=== PATIENT | male | born 1975 | race Caucasian/White ===

== ENCOUNTER 2017-08-20 09:48 | Emergency (ER) ==
[2017-08-20 09:53] VITALS: TEMP 97.3; BMI 37.7
[2017-08-20 10:21] VITALS: BP 160/98
[2017-08-20] MEDS ORDERED: XOPENEX 1.25 MG NEB STA (10:30)
[2017-08-20] MEDS ORDERED: DECADRON 4 MG/ML SDV IM STA (10:30)
[2017-08-20] MEDS ORDERED: LIDOCAINE HCL 1% SDV SUBCUT STA (10:30)
[2017-08-20] MEDS ORDERED: DUONEB NEB STA (10:30)
[2017-08-20] MEDS ORDERED: ROCEPHIN IM STA (10:30)
--- NOTE | 2017-08-20 11:17 | ED.PDOC ---
General ED Provider: Dr. ABDI TRACY-ER Chief Complaint: Respiratory Complaint Stated Complaint: wendy been coughing up green stuff Time Seen by Physician: 10:00 Mode of Arrival: Walk-In Information Source: Patient Exam Limitations: No limitations Primary Care Provider: ZACARIAS FLOYD Nursing and Triage Documentation Reviewed and Agree: Yes Reviewed sepsis parameters & appropriate labs ordered?: Yes System Inflammatory Response Syndrome: Not Applicable Sepsis Protocol: For patient's 13 years and over: Temp is 96.8 and below OR 101 and greater Pulse >90 BPM Resp >20/minute Acutely Altered Mental Status Are patient's symptoms suggestive of a new infection, such as: -Pneumonia -Skin, Soft Tissue -Endocarditis -UTI -Bone, Joint Infection -Implantable Device -Acute Abdominal Infection -Wound Infection -Meningitis -Blood Stream Catheter Infection -Unknown Respiratory Complaint Exam - Respiratory Complaint/Exam Onset/Duration: 2 weeks Symptoms Are: Still present Timing: Intermittent Initial Severity: Mild Current Severity: Mild Location: Chest Character: Reports: Productive cough Aggravating: Reports: URI Alleviating: Reports: None Associated Signs and Symptoms: Reports: Wheezing, URI, Nasal congestion. Denies : Rapid breathing, Dyspnea, Fever, Chills, Chest pain, Pleuritic chest pain, Hemoptysis, Dizziness, Calf pain, Calf swelling, Edema, Hoarseness, Sinus discomfort, Vomiting, Sore throat, Weight loss, Decreased oral intake, Increased thirst, Increased urination Related History: Reports: Similar episode History of Healthcare-Acquired Pneumonia: No Tuberculosis Risk Factors: Reports: None Status Asthmaticus Risk Factors: Reports: None Home Oxygen Use: No Recent Stress Test: No Recent Echo/LV Function: No Current Antibiotic Use: No Current Asthma Medication Use: No Respiratory Distress: None Inadequate Respiratory Effort: No Dysphagia Present: No Stridor Present: No JVD Present: No Accessory Muscle Use: No Retractions: Not Present Diminished Breath Sounds: No Prolonged Respiration: Expiratory phase Sinus Tenderness: None Grunting Respirations: No Kussmaul Respirations: No Differential Diagnoses: Pneumonia, Bronchitis Review of Systems - Review Of Systems Constitutional: Reports: No symptoms Eyes: Reports: No symptoms Ears, Nose, Mouth, Throat: Reports: No symptoms Respiratory: Reports: Cough, Wheezing Cardiac: Reports: No symptoms GI: Reports: No symptoms : Reports: No symptoms Musculoskeletal: Reports: No symptoms Skin: Reports: No symptoms Neurological: Reports: No symptoms Endocrine: Reports: No symptoms Hematologic/Lymphatic: Reports: No symptoms All Other Systems: Reviewed and Negative Past Medical History - Past Medical History Previously Healthy: Yes Endocrine: Reports: None Cardiovascular: Reports: Hypertension Respiratory: Reports: None Hematological: Reports: None Gastrointestinal: Reports: None Genitourinary: Reports: None Neuro/Psych: Reports: None Musculoskeletal: Reports: None Cancer: Reports: None - Surgical History General Surgical History: Reports: Unknown - Family History Family History: Reports: Unknown - Social History Smoking Status: Former smoker Hx Substance Use: No Alcohol Screening: Occasionally Lives: With family Physical Exam - Physical Exam Appearance: Well-appearing, No pain distress, Well-nourished Eyes: CHIDI, EOMI, Conjunctiva clear ENT: Ears normal Neck: Supple Respiratory: Airway patent, Respirations nonlabored, Rhonchi, Wheezes Cardiovascular: RRR, Pulses normal, No rub, No murmur GI/: Soft, Nontender, No masses, Bowel sounds normal, No Organomegaly Musculoskeletal: Normal strength, ROM intact, No edema, No calf tenderness Skin: Warm, Dry, Normal color Neurological: Sensation intact, Motor intact, Reflexes intact, Cranial nerves intact, Alert, Oriented Psychiatric: Affect appropriate, Mood appropriate Interpretation - Radiology Interpretation Radiology Interpretation By: Radiologist Radiology Results: Negative Exam Interpreted: CXR Re-Evaluation - Re-Evaluation Time of Re-Evaluation: 11:44 Status: Improved Vital Signs Stable: Yes Pain Level: 0 Appearance: NAD Lungs: Clear Skin: Warm and Dry Neuro: Alert and Oriented X3 CV: RRR Critical Care Note - Critical Care Note Total Time (mins): 0 Course - Course Hematology/Chemistry: 08/20/17 10:35 08/20/17 10:35 Orders, Labs, Meds: Lab Review 08/20/17 08/20/17 08/20/17 09:58 10:35 10:35 WBC 11.16 H RBC 5.32 Hgb 16.1 Hct 47.0 MCV 88.3 MCH 30.3 MCHC 34.3 RDW Coeff of Teresa 12.1 Plt Count 236 Immature Gran % (Auto) 0.4 Neut % (Auto) 62.5 Lymph % (Auto) 27.9 [place] % (Auto) 7.4 Eos % (Auto) 1.4 Baso % (Auto) 0.4 Immature Gran # (Auto) 0.0 Neut # 7.0 H Lymph # 3.1 [place] # 0.8 Eos # 0.2 Baso # 0.0 D-Dimer (Manual) Sodium 138 Potassium 3.5 Chloride 101 Carbon Dioxide 29 Anion Gap 11.5 BUN 11 Creatinine 0.80 Estimated GFR (MDRD) 107.00 BUN/Creatinine Ratio 13.75 Glucose 96 Calcium 9.0 Total Bilirubin 0.7 AST 24 ALT 35 Alkaline Phosphatase 65 Total Protein 7.7 Albumin 3.7 Globulin 4.0 Albumin/Globulin Ratio 0.93 Influenza A (Rapid) Negative by naat Influenza B (Rapid) Negative by naat 08/20/17 10:35 WBC RBC Hgb Hct MCV MCH MCHC RDW Coeff of Teresa Plt Count Immature Gran % (Auto) Neut % (Auto) Lymph % (Auto) [place] % (Auto) Eos % (Auto) Baso % (Auto) Immature Gran # (Auto) Neut # Lymph # [place] # Eos # Baso # D-Dimer (Manual) 351.22 Sodium Potassium Chloride Carbon Dioxide Anion Gap BUN Creatinine Estimated GFR (MDRD) BUN/Creatinine Ratio Glucose Calcium Total Bilirubin AST ALT Alkaline Phosphatase Total Protein Albumin Globulin Albumin/Globulin Ratio Influenza A (Rapid) Influenza B (Rapid) Orders Category Date Time Status NEBULIZER TREATMENT Stat CARDIO 08/20/17 10:30 Ordered BLOOD CULTURE (ED ONLY) Stat LAB 08/20/17 10:35 Received CBC W/ AUTO DIFF Stat LAB 08/20/17 10:35 Completed COMPREHENSIVE METABOLIC PANEL Stat LAB 08/20/17 10:35 Completed D-DIMER Stat LAB 08/20/17 10:35 Completed MOLECULAR GROUP A STREP Stat LAB 08/20/17 09:58 Results RAPID FLU A/B Stat LAB 08/20/17 09:58 Completed STREP SCREEN Stat LAB 08/20/17 09:58 Results Ceftriaxone Sodium [Rocephin] MEDS 08/20/17 10:30 Discontinued 1 gm IM ONCE STA Dexamethasone 4 mg/ml Inj [Decadron 4 mg/ml Sdv] MEDS 08/20/17 10:30 Discontinued 8 mg IM ONCE STA Ipratropium/Albuterol Neb [Duoneb] MEDS 08/20/17 10:30 Discontinued 1 vial NEB ONCE STA Levalbuterol HCl [Xopenex 1.25 mg] MEDS 08/20/17 10:30 Discontinued 1 vial NEB ONCE STA Lidocaine HCl/Pf [Lidocaine HCl 1% Sdv] MEDS 08/20/17 10:30 Discontinued 5 ml SUBCUT ONCE STA CXR [CHEST, 2 VIEWS PA & LAT] Stat RADS 08/20/17 10:30 Ordered Medications Discontinued Medications Generic Name Dose Route Start Last Admin Trade Name Greer PRN Reason Stop Dose Admin Albuterol/Ipratropium 1 vial 08/20/17 10:30 08/20/17 11:23 Duoneb NEB 08/20/17 10:31 1 vial ONCE STA Administration Ceftriaxone Sodium 1 gm 08/20/17 10:30 08/20/17 10:49 Rocephin IM 08/20/17 10:31 1 gm ONCE STA Administration Dexamethasone Sodium Phosphate 8 mg 08/20/17 10:30 08/20/17 10:48 Decadron 4 Mg/Ml Sdv IM 08/20/17 10:31 8 mg ONCE STA Administration Levalbuterol HCl 1 vial 08/20/17 10:30 08/20/17 10:56 Xopenex 1.25 Mg NEB 08/20/17 10:31 1 vial ONCE STA Administration Lidocaine HCl 5 ml 08/20/17 10:30 08/20/17 10:50 Lidocaine Hcl 1% Sdv SUBCUT 08/20/17 10:31 2.1 ml ONCE STA Administration Vital Signs: Temp Pulse Resp BP Pulse Ox 08/20/17 10:20 160/98 H 08/20/17 09:48 97.3 F L 100 H 16 195/121 H 95 Departure - Departure Time of Disposition: 11:44 Disposition: HOME SELF-CARE Discharge Problem: Acute bronchitis Qualifiers: Bronchitis organism: unspecified organism Qualified Code(s): J20.9 - Acute bronchitis, unspecified Instructions: Acute Bronchitis (ED) Condition: Good Pt referred to PMD for follow-up: Yes Additional Instructions: biaxin 500mg bid x 10 days--medrol dose pack--proventil inhaler 2 puffs qid -- tessaon perles 200mg tid prn cough #3--avoid cig smoke--f/u with dr alexa fair Allergies/Adverse Reactions: Allergies No Known Allergies Allergy (Verified 08/20/17 09:53) Home Medications: Ambulatory Orders Bisoprolol Fumarate [Zebeta] 5 mg PO DAILY 08/20/17 Losartan Potassium [Cozaar] 25 mg PO BID 08/20/17 Disposition Discussed With: Patient
--- NOTE | 2017-08-20 12:15 | DI ---
EXAM: CHEST FRONTAL AND LATERAL VIEWS HISTORY: Cough. COMPARISON: None FINDINGS: Heart size and mediastinal contour within normal limits. No acute infiltrates. Normal vascularity with no pleural fluid or pneumothorax. The bony thorax has no acute finding. IMPRESSION: No acute process.
== END 2017-08-20 12:20 | disposition home or self-care (01) ==
LOC: ED 09:48
DX: J20.9 Acute bronchitis, unspecified (principal); I10 Essential (primary) hypertension
CPT/HCPCS: 36415; 80053; 85025; 85379; 87040; 87502; 87651; 87880; 94640; 96372; 99283

== ENCOUNTER 2017-08-27 08:22 | Emergency (ER) ==
[2017-08-27 08:30] VITALS: TEMP 99.6; BMI 37.8
[2017-08-27] MEDS: COZAAR PO STA (09:00)
--- NOTE | 2017-08-27 09:25 | DI ---
EXAM: Chest PA and lateral HISTORY: Shortness of breath. COMPARRISON: 08/20/2017 FINDINGS: The heart is normal in size. Pulmonary vascularity is within normal limits. No focal airspa ce opacity or pleural effusion is seen. Osseous structures are unremarkable. IMPRESSION: No acute cardiopulmonary findings.
[2017-08-27 09:57] VITALS: BP 164/124
--- NOTE | 2017-08-27 09:57 | ED.PDOC ---
General ED Provider: Dr. CATIA SCHMIDT Chief Complaint: Shortness of Air Stated Complaint: short of air flu like symptoms Time Seen by Physician: 08:22 (seen with entire staff on last day of z pack) Mode of Arrival: Walk-In Information Source: Patient Exam Limitations: No limitations Primary Care Provider: ZACARIAS FLOYD Nursing and Triage Documentation Reviewed and Agree: Yes Reviewed sepsis parameters & appropriate labs ordered?: Yes System Inflammatory Response Syndrome: Not Applicable Sepsis Protocol: For patient's 13 years and over: Temp is 96.8 and below OR 101 and greater Pulse >90 BPM Resp >20/minute Acutely Altered Mental Status Are patient's symptoms suggestive of a new infection, such as: -Pneumonia -Skin, Soft Tissue -Endocarditis -UTI -Bone, Joint Infection -Implantable Device -Acute Abdominal Infection -Wound Infection -Meningitis -Blood Stream Catheter Infection -Unknown Respiratory Complaint Exam - Respiratory Complaint/Exam Onset/Duration: 1 week Symptoms Are: Still present Timing: Intermittent Initial Severity: Mild Current Severity: Mild Location: Nose, Throat, Chest Character: Reports: Non-productive cough Aggravating: Reports: URI Alleviating: Reports: Spontaneous resolution Associated Signs and Symptoms: Reports: URI. Denies: Rapid breathing, Dyspnea, Fever, Chills, Chest pain, Pleuritic chest pain, Wheezing, Hemoptysis, Dizziness , Calf pain, Calf swelling, Edema, Nasal congestion, Hoarseness, Sinus discomfort, Vomiting, Sore throat, Weight loss, Decreased oral intake, Increased thirst, Increased appetite, Increased urination History of Healthcare-Acquired Pneumonia: No Related Surgical History: Reports: None Pulmonary Embolism Risk Factors: None Cardiac Risk Factors: Reports: Hypertension Tuberculosis Risk Factors: Reports: None Status Asthmaticus Risk Factors: Reports: None Home Oxygen Use: No Recent Stress Test: No Recent Echo/LV Function: No Current Antibiotic Use: No Current Asthma Medication Use: No Respiratory Distress: None Inadequate Respiratory Effort: No Dysphagia Present: No Stridor Present: No JVD Present: No Accessory Muscle Use: No Retractions: Not Present Diminished Breath Sounds: No Sinus Tenderness: None Grunting Respirations: No Kussmaul Respirations: No Differential Diagnoses: Pneumonia, Bronchitis Review of Systems - Review Of Systems Constitutional: Reports: Malaise Eyes: Reports: No symptoms Ears, Nose, Mouth, Throat: Reports: No symptoms Respiratory: Reports: Cough, Short of air Cardiac: Reports: No symptoms GI: Reports: No symptoms : Reports: No symptoms Musculoskeletal: Reports: No symptoms Skin: Reports: No symptoms Neurological: Reports: No symptoms Endocrine: Reports: No symptoms Hematologic/Lymphatic: Reports: No symptoms All Other Systems: Reviewed and Negative Past Medical History - Past Medical History Previously Healthy: Yes Endocrine: Reports: None Cardiovascular: Reports: Hypertension Respiratory: Reports: None Hematological: Reports: None Gastrointestinal: Reports: None Genitourinary: Reports: None Neuro/Psych: Reports: None Musculoskeletal: Reports: None Cancer: Reports: None - Surgical History General Surgical History: Reports: Unknown - Family History Family History: Reports: Unknown - Social History Smoking Status: Former smoker Hx Substance Use: No Alcohol Screening: Occasionally Physical Exam - Physical Exam Appearance: Well-appearing, No pain distress, Well-nourished Eyes: CHIDI, EOMI, Conjunctiva clear ENT: Ears normal, Nose normal, Oropharynx normal Respiratory: Airway patent, Breath sounds clear, Breath sounds equal, Respirations nonlabored Cardiovascular: RRR, Pulses normal, No rub, No murmur GI/: Soft, Nontender, No masses, Bowel sounds normal, No Organomegaly Musculoskeletal: Normal strength, ROM intact, No edema, No calf tenderness Skin: Warm, Dry, Normal color Neurological: Sensation intact, Motor intact, Reflexes intact, Cranial nerves intact, Alert, Oriented Psychiatric: Affect appropriate, Mood appropriate Interpretation - Radiology Interpretation Radiology Interpretation By: Radiologist Radiology Results: Negative Exam Interpreted: CXR Critical Care Note - Critical Care Note Total Time (mins): 0 Course - Course Orders, Labs, Meds: Lab Review 08/27/17 09:00 Puncture Site Rrad O2 Saturation 97.0 ABG pH 7.436 ABG pCO2 39.0 ABG pO2 86.0 ABG HCO3 26.2 H ABG Total CO2 27 ABG Base Excess 2 Edgar Test + FiO2 % 21.0 Orders Category Date Time Status ABG DRAW REQUEST Stat CARDIO 08/27/17 08:46 Ordered ABG Stat LAB 08/27/17 08:46 Ordered Losartan Potassium [Cozaar] MEDS 08/27/17 08:47 Stat 25 mg PO ONCE STA CHEST, 2 VIEWS PA & LAT Stat RADS 08/27/17 08:47 Ordered Medications Discontinued Medications Generic Name Dose Route Start Last Admin Trade Name Freq PRN Reason Stop Dose Admin Losartan Potassium 25 mg 08/27/17 08:47 08/27/17 09:00 Cozaar PO 08/27/17 08:48 25 mg ONCE STA Administration Vital Signs: Temp Pulse Resp BP Pulse Ox 08/27/17 08:52 104 H 181/125 H 95 08/27/17 08:22 99.6 F 103 H 20 191/135 H 96 Departure - Departure Time of Disposition: 09:57 Disposition: HOME SELF-CARE Discharge Problem: Viral syndrome Instructions: Viral Syndrome (ED) Condition: Good Pt referred to PMD for follow-up: Yes Additional Instructions: Please call your Family Physician as soon as possible to schedule a follow-up appointment. Prescriptions: Hydrocodone/Chlorphen Polis [Tussionex] 5 ml PO Q12HR 5 Days disp.syrin Allergies/Adverse Reactions: Allergies No Known Allergies Allergy (Verified 08/27/17 08:32) Home Medications: Ambulatory Orders Bisoprolol Fumarate [Zebeta] 5 mg PO DAILY 08/20/17 Losartan Potassium [Cozaar] 25 mg PO BID 08/20/17 Albuterol Sulfate [Proair Hfa] 2 puff IH Q6H 08/27/17 Azithromycin [Zithromax] 500 mg PO DAILY 08/27/17 Hydrocodone/Chlorphen Polis [Tussionex] 5 ml PO Q12HR 5 Days disp.syrin Disposition Discussed With: Patient
== END 2017-08-27 10:06 | disposition home or self-care (01) ==
LOC: ED 08:22
DX: B34.9 Viral infection, unspecified (principal); I10 Essential (primary) hypertension
CPT/HCPCS: 82803; 99283

== ENCOUNTER 2019-01-20 12:32 | Emergency (ER) ==
[2019-01-20 12:37] VITALS: TEMP 98.9; BMI 38.3
[2019-01-20] MEDS ORDERED: NORVASC PO STA (13:49)
--- NOTE | 2019-01-20 14:06 | DI ---
Exam: Two views of the chest. Comparison: 07/23/2018. Reason for exam: Cough. FINDINGS: No pneumothorax, pleural effusion, or focal consolidation. The cardiac silhouette is unch anged. The imaged osseous structures appear unremarkable. Impression: No acute cardiopulmonary process
--- NOTE | 2019-01-20 15:06 | ED.PDOC ---
General ED Provider: Dr. CATIA SCHMIDT Chief Complaint: Hypertension Stated Complaint: hypertension Time Seen by Physician: 12:33 (seen with RN AT ALL TIMES ) Mode of Arrival: Walk-In Information Source: Patient Exam Limitations: No limitations Primary Care Provider: ZACARIAS FLOYD Nursing and Triage Documentation Reviewed and Agree: Yes Does patient meet sepsis criteria?: No System Inflammatory Response Syndrome: Not Applicable Sepsis Protocol: For patient's 13 years and over: Temp is 96.8 and below OR 101 and greater Pulse >90 BPM Resp >20/minute Acutely Altered Mental Status Are patient's symptoms suggestive of a new infection, such as: -Pneumonia -Skin, Soft Tissue -Endocarditis -UTI -Bone, Joint Infection -Implantable Device -Acute Abdominal Infection -Wound Infection -Meningitis -Blood Stream Catheter Infection -Unknown Cardiovascular Complaint Exam - Hypertension Complaint/Exam Onset/Duration: 1 DAY Symptoms Are: Still present Timing: Intermittent Reported B/P Prior to Arrival: 160/100 Aggravating: Reports: None Alleviating: Reports: None Associated Signs and Symptoms: Denies: Chest pain, Vision changes, Anxiety, Recent stress, Headache, Numbness, Tingling, Weakness, Dizziness, Short of air, Swelling Related Surgical History: Reports: None Cardiac Risk Factors: Reports: Hypertension Recent Change in Medications: No A/V [place]: No Papilledema Present: No JVD Present: No Carotid Bruit Present: No Femoral Pulses Bounding: No Differential Diagnoses: Hypertensive Urgency Quality Indicator For Non-Traumatic Chest Pain/Syncope: EKG Performed Review of Systems - Review Of Systems Constitutional: Reports: No symptoms Eyes: Reports: No symptoms Ears, Nose, Mouth, Throat: Reports: No symptoms Respiratory: Reports: No symptoms Cardiac: Reports: No symptoms GI: Reports: No symptoms : Reports: No symptoms Musculoskeletal: Reports: No symptoms Skin: Reports: No symptoms Neurological: Reports: No symptoms Endocrine: Reports: No symptoms Hematologic/Lymphatic: Reports: No symptoms All Other Systems: Reviewed and Negative Past Medical History - Past Medical History Previously Healthy: Yes Endocrine: Reports: None Cardiovascular: Reports: Hypertension Respiratory: Reports: None Hematological: Reports: None Gastrointestinal: Reports: None Genitourinary: Reports: None Neuro/Psych: Reports: None Musculoskeletal: Reports: None Cancer: Reports: None - Surgical History General Surgical History: Reports: Unknown - Family History Family History: Reports: Unknown - Social History Smoking Status: Current every day smoker, Light tobacco smoker Hx Substance Use: No Alcohol Screening: Occasionally - Immunizations Tetanus Shot up to Date: No Physical Exam - Physical Exam Appearance: Well-appearing, No pain distress, Well-nourished Eyes: CHIDI, EOMI, Conjunctiva clear ENT: Ears normal, Nose normal, Oropharynx normal Respiratory: Airway patent, Breath sounds clear, Breath sounds equal, Respirations nonlabored Cardiovascular: RRR, Pulses normal, No rub, No murmur GI/: Soft, Nontender, No masses, Bowel sounds normal, No Organomegaly Musculoskeletal: Normal strength, ROM intact, No edema, No calf tenderness Skin: Warm, Dry, Normal color Neurological: Sensation intact, Motor intact, Reflexes intact, Cranial nerves intact, Alert, Oriented Psychiatric: Affect appropriate, Mood appropriate Interpretation - Radiology Interpretation Radiology Interpretation By: Radiologist Radiology Results: No acute changes - Computer Engineering Technologist Rate: Normal Rhythm: Sinus Ectopy: None - EKG Interpretation Rate: Normal Rhythm: Sinus Ectopy: None [place]: [place] ([facility]) Physician Notification - Case Discussed Physician Notified: PMD Time of Notification: 15:05 (ALL LABS DISCUSSED . PMD STATED TO PLACE PT NORVASC 5 MG BID AND ASK TO SEE P.M.D IN AM) Critical Care Note - Critical Care Note Total Time (mins): 0 Course - Course Hematology/Chemistry: 01/20/19 14:00 01/20/19 14:00 Orders, Labs, Meds: Lab Review 01/20/19 01/20/19 01/20/19 13:59 14:00 14:00 WBC 8.83 RBC 5.44 Hgb 16.5 Hct 49.5 MCV 91.0 MCH 30.3 MCHC 33.3 RDW Coeff of Teresa 12.5 Plt Count 224 Immature Gran % (Auto) 0.3 Neut % (Auto) 63.3 Lymph % (Auto) 28.1 [place] % (Auto) 6.3 Eos % (Auto) 1.4 Baso % (Auto) 0.6 Immature Gran # (Auto) 0.0 Neut # (Auto) 5.6 Lymph # (Auto) 2.5 [place] # (Auto) 0.6 Eos # (Auto) 0.1 Baso # (Auto) 0.1 Sodium 139.8 Potassium 4.18 Chloride 102.8 Carbon Dioxide 27.7 Anion Gap 13.48 BUN 13.8 Creatinine 0.96 Estimated GFR (MDRD) 85.00 BUN/Creatinine Ratio 14.37 Glucose 96.7 Calcium 9.80 Total Bilirubin 0.52 AST 39.1 ALT 51.4 H Alkaline Phosphatase 55.8 Total Creatine Kinase 286.2 H CK-MB (CK-2) 2.620 H CK-MB (CK-2) % 0.9100 Troponin I < 0.012 Total Protein 7.48 Albumin 4.71 Globulin 2.77 Albumin/Globulin Ratio 1.70 TSH 0.888 Free T4 Urine Color Yellow Urine Clarity Clear Urine pH 6.5 Ur Specific [place] 1.020 Urine Protein Negative Urine Glucose (UA) Negative Urine Ketones Negative Urine Blood Trace-intact Urine Nitrite Negative Urine Bilirubin Negative Urine Urobilinogen 0.2 Ur Leukocyte Esterase Negative Urine Microscopic RBC 2-5 Urine Microscopic WBC 0-2 Ur Squamous Epith Cells 0-2 Urine Bacteria Trace 01/20/19 14:00 WBC RBC Hgb Hct MCV MCH MCHC RDW Coeff of Teresa Plt Count Immature Gran % (Auto) Neut % (Auto) Lymph % (Auto) [place] % (Auto) Eos % (Auto) Baso % (Auto) Immature Gran # (Auto) Neut # (Auto) Lymph # (Auto) [place] # (Auto) Eos # (Auto) Baso # (Auto) Sodium Potassium Chloride Carbon Dioxide Anion Gap BUN Creatinine Estimated GFR (MDRD) BUN/Creatinine Ratio Glucose Calcium Total Bilirubin AST ALT Alkaline Phosphatase Total Creatine Kinase CK-MB (CK-2) CK-MB (CK-2) % Troponin I Total Protein Albumin Globulin Albumin/Globulin Ratio TSH Free T4 0.90 Urine Color Urine Clarity Urine pH Ur Specific [place] Urine Protein Urine Glucose (UA) Urine Ketones Urine Blood Urine Nitrite Urine Bilirubin Urine Urobilinogen Ur Leukocyte Esterase Urine Microscopic RBC Urine Microscopic WBC Ur Squamous Epith Cells Urine Bacteria Orders Category Date Time Status EKG-(ED ONLY) Stat CARDIO 01/20/19 13:48 Completed CBC W/ AUTO DIFF Stat LAB 01/20/19 14:00 Completed COMPREHENSIVE METABOLIC PANEL Stat LAB 01/20/19 14:00 Completed CREATINE KINASE Stat LAB 01/20/19 14:00 Completed FREE T4 (FREE THYROXINE) Stat LAB 01/20/19 14:00 Completed THYROID STIMULATING HORMONE Stat LAB 01/20/19 14:00 Completed TROPONIN I Stat LAB 01/20/19 14:00 Completed URINALYSIS C & S IF INDICATED Stat LAB 01/20/19 13:59 Completed Amlodipine Besylate [Norvasc] MEDS 01/20/19 13:49 Discontinued 5 mg PO ONCE STA CHEST, 2 VIEWS PA & LAT Stat RADS 01/20/19 13:47 Completed Medications Discontinued Medications Generic Name Dose Route Start Last Admin Trade Name Greer PRN Reason Stop Dose Admin Amlodipine Besylate 5 mg 01/20/19 13:49 01/20/19 14:07 Norvasc PO 01/20/19 13:50 5 mg ONCE STA Administration Vital Signs: Temp Pulse Resp BP Pulse Ox 01/20/19 13:46 153/105 H 01/20/19 12:32 98.9 F 85 20 204/140 H 95 BHAVANI Risk Score BHAVANI Risk Score: Risk Score Odds of by 30D 0 0.1 (0.1-0.2) 1 0.3 (0.2-0.3) 2 0.4 (0.3-0.5) 3 0.7 (0.6-0.9) 4 1.2 (1.0-1.5) 5 2.2 (1.9-2.6) 6 3.0 (2.5-3.6) 7 4.8 (3.8-6.1) Departure - Departure Time of Disposition: 15:06 Disposition: HOME SELF-CARE Discharge Problem: Hypertension Qualifiers: Hypertension type: unspecified Qualified Code(s): I10 - Essential (primary) hypertension Instructions: Hypertension (ED) Condition: Good Pt referred to PMD for follow-up: Yes IPMP verified?: No Additional Instructions: Please call your Family Physician as soon as possible to schedule a follow-up appointment. YOUR DOCTOR WANTS TO SEE IN HIS OFFICE IN AM Prescriptions: Amlodipine Besylate [Norvasc] 5 mg PO BIDWM #14 tablet Allergies/Adverse Reactions: Allergies No Known Allergies Allergy (Verified 01/20/19 12:55) Home Medications: Ambulatory Orders Bisoprolol Fumarate [Zebeta] 5 mg PO DAILY #30 tablet 07/23/18 Amlodipine Besylate [Norvasc] 5 mg PO BIDWM #14 tablet 01/20/19 Losartan Potassium [Cozaar] 100 mg PO DAILY 01/20/19
[2019-01-20 15:15] VITALS: BP 155/103
== END 2019-01-20 15:15 | disposition home or self-care (01) ==
LOC: ED 12:32
DX: I10 Essential (primary) hypertension (principal); F17.210 Nicotine dependence, cigarettes, uncomplicated
CPT/HCPCS: 36415; 80053; 81001; 82550; 82553; 84439; 84443; 84484; 85025; 93005; 93010; 99283

== ENCOUNTER 2019-01-24 06:42 | Outpatient (CLI) ==
--- NOTE | 2019-01-27 09:40 | ECHO2D ---
Date of Exam: 01/24/19 Ordering Physician: DR. ZACARIAS FLOYD Room #: OP Reason for Echo: HTN, SOB M-Mode Normal Adult Results LV Dimensions Normal Adult Results AoV Opening excursions >1.6 >1.6 LVEDD-base- 3.5-5.8 4.6 Ao root dimensions 2.0-3.7 4.3 LVESD-base- 3.1-4.6 L. Atrium dimensions 1.9-3.8 2.8 Post. Wall thickness 0.8-1.1 1.3 IV septum (thickness) 0.7-1.2 1.2 Post. Wall excursion 0.72-1.3 NORMAL Septal motion NORMAL Systolic motion R. Ventricular cavity 1.5-2.0 NORMAL LVEF 60% 62% Paradoxical septal wall motion NORMAL 2-D : DILATED AORTIC ROOT--NORMAL LEFT VENTRICULAR CONTRACTILITY--NORMAL LEFT VENTRICLE AND LEFT ATRIAL SIZE--ALL NORMAL M-MODE: MV: NORMAL AV: NORMAL TV: NORMAL PV: CHAMBER SIZE: DILATED AORTIC ROOT WALL MOTION: NORMAL PERICARDIUM: NORMAL INTERPRETATION: 1. LEFT VENTRICULAR HYPERTROPHY 2. DILATED AORTIC ROOT 4.3 CM 3. NORMAL LEFT VENTRICULAR CONTRACTILITY 4. NORMAL VALVES MTDD
== END 2019-01-24 06:43 | disposition home or self-care (01) ==
LOC: CAR 06:42
PROVIDERS: ATTEND Internal Medicine
DX: R06.02 Shortness of breath (principal); I10 Essential (primary) hypertension

== ENCOUNTER 2019-01-27 06:43 | Outpatient (CLI) ==
--- NOTE | 2019-01-27 09:07 | ECHOSTRESS ---
Date of Exam: 01/27/19 Ordering Physician: DR. ZACARIAS FLOYD Reason for Echo: HTN, SOB, STRESS TEST--NO ISCHEMIA M-Mode Normal Adult Results LV Dimensions Normal Adult Results AoV Opening excursions >1.6 LVEDD-base- 3.5-5.8 Ao root dimensions 2.0-3.7 LVESD-base- 3.1-4.6 L. Atrium dimensions 1.9-3.8 Post. Wall thickness 0.8-1.1 IV septum (thickness) 0.7-1.2 Post. Wall excursion 0.72-1.3 Septal motion Systolic motion R. Ventricular cavity 1.5-2.0 LVEF 60% Paradoxical septal wall motion 2-D: NORMAL LEFT VENTRICULAR CONTRACTILITY--RESTING AND POST EXERCISE M-MODE: MV: AV: TV: PV: CHAMBER SIZE: WALL MOTION: NORMAL LEFT VENTRICULAR CONTRACTILITY--RESTING AND POST EXERCISE PERICARDIUM: INTERPRETATION: 1. NORMAL LEFT VENTRICULAR CONTRACTILITY--RESTING AND POST EXERCISE MTDD
--- NOTE | 2019-01-27 09:24 | STRESSECHO ---
Date of Test: 01/27/19 Ordering Physician: DR. ZACARIAS FLOYD Occupation: [employer]PRESENT[employer]IVE Reason for Exam: HTN, SOB, LVH BY ECHO Smoking History: NONE Height: 76" Weight: 310 LBS Current Medications: COZAAR, ZEBETA, NORVASC Resting EKG: SINUS RHYTHM/ NO ACUTE CHANGES Target Heart Rate: 150/177 S-T SEGMENT STAGE MPH/GRADE HEART RATE BPM BLOOD PRESSURE MMHG RHYTHM +/- ELEVATION DEPRESSION SYMPTOMS AT REST 84 BPM 142/100 MMHG SR X NONE 1 1.7/10% 104 BPM 160/90 MMHG SR X NONE 2 2.5/12% 125 BPM 158/80 MMHG SR X NONE 3 3.4/14% 4 4.2/16% 5 5.0/18% Immediately After 140 BPM SR X SHORT OF AIR Minutes Post Exercise 5:00 90 BPM 158/90 MMHG SR X NONE Minutes Post Exercise DURATION OF EXERCISE: 7:17 MAXIMUM HEART RATE REACHED: 140 BPM REASON FOR TERMINATION: SHORT OF AIR 97% OXYGEN SATURATION WITH EXERCISE ON ROOM AIR METS 10.0 INTERPRETATION: 1. NO EVIDENCE OF ISCHEMIA BY ST-T WAVE 2. NO CHEST PAIN OR DISCOMFORT 3. NO ARRHYTHMIAS 4. BLOOD PRESSURE RESPONSE: HYPERTENSION AT REST AND BORDERLINE HYPERTENSION WITH EXERCISE NORMAL LEFT VENTRICULAR CONTRACTILITY--RESTING AND POST EXERCISE MTDD
== END 2019-01-27 06:44 | disposition home or self-care (01) ==
LOC: CAR 06:43
PROVIDERS: ATTEND Internal Medicine
DX: R06.02 Shortness of breath (principal); I10 Essential (primary) hypertension

== ENCOUNTER 2019-01-28 06:50 | Outpatient (CLI) ==
--- NOTE | 2019-01-28 09:14 | US ---
EXAM: Renal ultrasound. History: Hypertension. Technique: Multiple sonographic images through the kidneys were obtained. Color duplex Doppler was used to interrogate vascular flow. Findings: The right kidney measures 13.4 cm in long length demonstrating normal cortical echogenicity without e vidence for hydronephrosis, mass or shadowing calculus. The left kidney measures 13.1 cm in long length demonstrating normal cortical echogenicity without ev idence for hydronephrosis, mass or shadowing calculus. The bladder is not well distended. No obvious bladder wall thickening. The liver is echogenic. Impression: 1. Sonographically normal kidneys. 2. Possible fatty liver.
--- NOTE | 2019-01-28 09:18 | US ---
EXAM: Renal arterial Doppler History: Hypertension. Technique: Multiple sonographic images through the kidneys were obtained. Color duplex Doppler was used to interrogate vascular flow. Findings: The right kidney measures 13 cm in long length demonstrating normal cortical echogenicity without yamil dence for hydronephrosis, mass or shadowing calculus. The left kidney measures 12.5 cm in long length demonstrating normal cortical echogenicity without ev idence for hydronephrosis, mass or shadowing calculus. The bilateral renal artery peak systolic velocities are not elevated. The bilateral renal artery/aor tic ratios are within normal limits. The right renal resistive index is 0.57 and the left renal resi stive index is 0.57. Impression: 1. No significant hemodynamic stenosis of the bilateral renal arteries. 2. No hydronephrosis
== END 2019-01-28 06:51 | disposition home or self-care (01) ==
LOC: RAD 06:50
PROVIDERS: ATTEND Internal Medicine
DX: I10 Essential (primary) hypertension (principal)